=== PATIENT | male | born 1950 | race Caucasian/White ===

== ENCOUNTER → 2023-12-01 12:08 | Outpatient (REF) | payer MEDICARE, OTHER, SELFPAY | LOC: HWRAD 12:08 | PROVIDERS: ATTENDING PHYSICIAN Family Medicine | DX: M25.551 Pain in right hip (principal); Z96.641 Presence of right artificial hip joint | CPT/HCPCS: 73502 ==

== ENCOUNTER → 2024-02-15 06:30 | Day surgery (SDC) | payer MEDICARE, OTHER, SELFPAY | LOC: GI 06:30 | PROVIDERS: ATTENDING PHYSICIAN Internal Medicine Gastroenterology | DX: Z12.11 Encounter for screening for malignant neoplasm of colon (principal); D12.2 Benign neoplasm of ascending colon; K57.30 Diverticulosis of large intestine without perforation or abscess without bleeding; K64.8 Other hemorrhoids; Q43.8 Other specified congenital malformations of intestine; Z86.010 Personal history of colon polyps | CPT/HCPCS: 45380; 88305 ==

== ENCOUNTER → 2024-06-21 11:22 | Outpatient (REF) | payer MEDICARE, OTHER, SELFPAY | LOC: HWRAD 11:22 | PROVIDERS: ATTENDING PHYSICIAN Internal Medicine Gastroenterology; FAMILY PHYSICIAN Family Medicine | DX: K59.01 Slow transit constipation (principal) | CPT/HCPCS: 74018 ==

== ENCOUNTER 2024-07-15 10:10 | Inpatient (IN) | payer MEDICARE, OTHER, SELFPAY ==
[2024-07-13 17:47] VITALS: BP 146/105
[2024-07-13 18:37] VITALS: BP 129/73
[2024-07-13 18:48] VITALS: BMI 28.7
[2024-07-13 19:12] LABS: % Basophils 0.5 % (0-2); % Eosinophils 1.3 % (0-6); % Immature Granulocytes 0.2 % (0-0.5); % Lymphocytes 15.3 % (20.5-51.1); % Monocytes 11.7 % (1.7-9.3); Absolute Basophils 0.1 10^3/uL (0-0.2); Absolute Eosinophils 0.1 10^3/uL (0-0.7); Absolute Lymphocytes 1.7 10^3/uL (1.2-3.4); Absolute Monocytes 1.3 10^3/uL (0.1-0.6); Absolute Neutrophils 7.7 10^3/uL (1.4-6.5); Hematocrit 39.1 % (39.0-52.0); Hemoglobin 13.3 g/dL (13.0-18.0); Mean Corpuscular Hgb 30.2 pg (27.0-31.0); Mean Corpuscular Volume 88.9 fL (80.0-94.0); Mean Platelet Volume 9.7 fL (7.4-10.4); Nucleated Red Blood Cells % 0 % (-); Platelet Count 322 10^3/uL (130-400); Red Cell Dist. Width 13.3 % (11.5-14.5); White Blood Cell Count 10.8 10^3/uL (4.8-10.8)
--- NOTE | 2024-07-13 19:24 | ED.GENMED ---
History of Present Illness
General
Chief Complaint: Fainting/Passed Out
Time Seen by Provider: 07/13/24 18:48
History of Present Illness
History of Present Illness:
Patient is a 73 male with history of A-fib on Eliquis, CAD with stent, hypertension, hyperlipidemia presented to the emergency room after a fall and syncopal event. Patient states that he woke up this morning feeling slightly unwell. He felt
nauseous but had no episodes of vomiting or diarrhea. He attributed to something that he ate. Later in the day he went to the bathroom. He did feel slightly nauseous and thought he was going to throw up but he did not. He then sat down on the
toilet and had a syncopal event and fell off the toilet. He did hit his head. He says he came to when he hit the ground. He does have a slight headache in the back of his head. No numbness tingling. No weakness. He denies any lightheadedness
dizziness. No tunnel vision. He only states that he was nauseous. He currently at this time feels back to baseline.
Past History
Past History
ED Past Medical History: Arrthythmia (Paroxysmal atrial fibrillation February 2018), CAD, GERD, HTN, Hypercholesterolemia and Other (Myasthenia gravis, Aragon's esophagus, coronary artery disease with stent, GERD, peripheral neuropathy with chronic foot
drop bilaterally); Negative [place]
ED Past Surgical History: Cardiac (PTCA with 1 stent 2000, pericardial effusion) and Orthopedic (Lumbar laminectomy, right hip replacement)
Social History
Tobacco: Non-smoker
Personal:
Living: with family
Employment: Employed
Family History
Family History: Other (Noncontributory)
Phy Exam
Physical Exam
Physical Exam:
GENERAL: no acute distress
HEENT: atraumatic, extraocular muscles intact, no signs of entrapment, dentition intact, no other obvious trauma
NECK: no midline tenderness, normal range of motion, no other obvious trauma
BACK: no midline tenderness, no other obvious trauma
CHEST: no tenderness, no flail segment, no subcutaneous emphysema, no other obvious trauma
LUNGS: clear to auscultation bilaterally
CARDIOVASCULAR: regular rate and rhythm
ABDOMEN: soft, non-tender, no masses, no other obvious trauma
PELVIS: stable, no obvious injury
EXTREMITIES: moving all extremities, distal pulses intact, no other obvious trauma
NEUROLOGIC: awake, alert x 3, no focal deficits
Course
Orders/Labs/Results
Orders:
Orders
07/13/24 17:52
CT Head W/o Iv Contrast Urgent
Comment:
Reason For Exam: fall
07/13/24 18:24
ECG [Electrocardiogram (*1)] Urgent
Reason for Study: Vertigo / Dizzy
EKG- Treatment ONCE
07/13/24 18:58
CMP [Comprehensive Metabolic Panel] Urgent
Complete Blood Count/With Diff Urgent
Magnesium Urgent
Comment: ADD ON
07/13/24 19:22
Add On- LAB Stat
Tests Added?: magnesium
Abnormal Lab Results
07/13/24
18:58
RBC 4.40 L 10^6/uL
(4.70-6.10)
Absolute Neuts (auto) 7.7 H 10^3/uL
(1.4-6.5)
Absolute Monos (auto) 1.3 H 10^3/uL
(0.1-0.6)
Lymphocytes % 15.3 L %
(20.5-51.1)
Monocytes % 11.7 H %
(1.7-9.3)
Chloride 97 L mmol/L
(98-107)
Glucose 104 H mg/dl
(70-99)
07/13/24 18:58
07/13/24 18:58
Vital Signs
Initial and Last Documented VS:
Initial Vital Signs
Temp Pulse Resp BP Pulse Ox
98.4 F 76 16 146/105 98
07/13/24 17:47 07/13/24 17:47 07/13/24 17:47 07/13/24 17:47 07/13/24 17:47
Last Documented Vital Signs
Temp Pulse Resp BP Pulse Ox
98.4 F 60 13 129/73 97
07/13/24 17:47 07/13/24 18:45 07/13/24 18:45 07/13/24 18:37 07/13/24 18:45
MDM/Problems Addressed
Differential Diagnosis Includes:
Patient is a 73-year-old male with history of A-fib on Eliquis, CAD with, hypertension, hyperlipidemia presenting to the emergency department after syncopal event with a fall. Vitals are notable for normal blood pressure and heart rate. Exam does
not show any obvious traumatic injury. He is complaining of a headache. Concern for traumatic intracranial bleed. Given that he was nauseous could be vasovagal however patient denies any other prodrome and does have history of cardiac disease I
am concerned about cardiac cause of syncope. Will check blood work including magnesium. EKG per my interpretation with normal sinus rhythm and normal intervals. Will obtain CT scan of the head. Likely will benefit from admission.
*Critical Care Note
Total Time (30-74mins, 75-104mins- exclusive of procedures): Not Applicable
Update Note
Update Note:
CT scan of the head per my interpretation with no obvious hemorrhage. Magnesium is normal. Given that patient really did not have many prodromal symptoms (besides ongoing nausea) patient will benefit from admission for cardiac monitoring.
Discussed with hospitalist who accepted patient to their service
ED Attending Note
-
Portions of this chart may have been created with voice recognition software.� Occasional wrong word or��sound alike� substitutions may have occurred due to the inherent limitations of voice recognition software.
Discharge Plan
Departure
Patient Disposition: Admit
Date of Disposition: 07/13/24
Time of Disposition: 20:09
Presentation/result/management discussed w/ accepting MD/DO: Hospitalist
Discharge Problem:
Syncope
Prescriptions:
No Action
aspirin 81 MG tablet,delayed release (DR/EC)
81 mg PO DAILY
mycophenolate mofetil 500 MG tablet
1,000 mg PO DAILY
omeprazole 20 MG capsule,delayed release(DR/EC)
20 mg PO DAILY
hydrochlorothiazide 25 MG tablet
25 mg PO DAILY
hydralazine 10 MG tablet
10 mg PO TID Qty: 30 1RF
Eliquis 5 MG tablet
5 mg PO BID
mycophenolate mofetil 500 mg Tablet
500 mg PO NOON
albuterol sulfate 90 mcg/actuation Hfa Aerosol Inhaler
2 puff INHALATION R Q4HPRN PRN (Reason: sob)
lisinopril 40 mg Tablet
40 mg PO DAILY
fluticasone propionate [Flonase] 50 mcg/actuation [place],Suspension
1 spray INTRANASAL DAILYPRN PRN (Reason: conjestion)
rosuvastatin 10 mg Tablet
10 mg PO DAILY
amiodarone 100 mg Tablet
100 mg PO DAILY
metoprolol tartrate 25 mg Tablet
12.5 mg PO BID
Interventions
Interventions:
*General Assessment Last Done: 07/13/24 17:47
*Neglect/Abuse Screening Last Done: 07/13/24 17:47
*ED COVID-19 Vaccine History Last Done: 07/13/24 17:47
Discharge Date and Time
Print Language: ROMANIAN
[2024-07-13 19:36] LABS: ALT (SGPT) 18 U/L (0-50); AST (SGOT) 26 U/L (17-59); Albumin 4.4 g/dl (3.5-5.0); Alkaline Phosphatase 70 U/L (38-126); Blood Urea Nitrogen 18 mg/dl (9-20); Calcium 9.6 mg/dl (8.4-10.2); Carbon Dioxide 29 mmol/L (22-30); Chloride 97 mmol/L (98-107); Estimated Creatinine Clearance 79 ml/min; Glucose 104 mg/dl (70-99); Magnesium 1.9 mg/dl (1.6-2.3); Potassium 4.3 mmol/L (3.5-5.1); Sodium 139 mmol/L (135-145); Total Bilirubin 1.2 mg/dl (0.2-1.3); Total Protein 6.6 g/dl (6.3-8.2); eGFR > 60.00
--- NOTE | 2024-07-13 20:11 | HPS.HSE ---
Addendum entered and electronically signed by Reggie Servin DO 07/13/24 20:46:
Patient seen and examined independently. Agree with findings and plan as set forth by SEFERINO Paredes.
Patient is a 73y M with PMH significant for ASCVD, hypertension and A-Fib who presents to ED for evaluation after syncopal event this AM. Patient states that he woke this AM to use the bathroom. He urinated and felt lightheaded, nauseated and
diaphoretic. He sat on the toilet and then woke on the floor - having lost consciousness for a few seconds. He has mild posterior headache. He has felt well since that time with no recurrent nausea, lightheadedness, etc. His convinced him
to present to the ED for evaluation given that he is on Eliquis.
Patient admits to similar symptoms of lightheadedness and nausea associated with AM urination over the past few months. Symptoms are inconsistent. No prior syncope. No issues with urination later in the day.
Ass:
Micturition Syncope
Head Injury on Eliquis
Paroxysmal Atrial Fibrillation
ASCVD
Myasthenia Gravis
Plan:
Observe overnight for further evaluation.
Monitor on telemetry for any arrhythmia.
Continue usual outpatient medications.
Follow for any new / recurrent symptoms.
PT / OT evaluation in the AM.
Original Note:
Family Physician
-
Family Physician:
Chief Complaint
-
syncope
History of Present Illness
73 year old with PMH for Aragon esophagus, GERD, A-fib, coronary artery disease, pericardial effusion, hypertension, pericarditis presented to us after a fall and syncopal event. He woke up not feeling well this morning. He went to the bathroom,
voided and he sat on the toilet and had a syncopal event. He hit his cheek right hip on the tub. Since then he was resting at home. Patient denied any headache, dizziness since then. Patient denied any fevers, chills, runny nose, congestion,
cough. Patient denied any chest pain, short of breath or palpitation. Patient denied any abdominal pain, nausea,, vomiting, diarrhea. Patient denied dysuria, hematuria.
CT head and labs stable. Admitting for further management
Medical History
Past Medical History
Past Medical History: Reports Other
Additional Past Medical History:
Aragon esophagus
GERD
A-fib
Coronary artery disease
Pericardial effusion
Colon polyps
Aragon's esophagus
Hypertension
Hyperlipidemia
Past Surgical History: Reports Other
Additional Past Surgical History:
Coronary artery disease stent
Laminectomy
right hip replacement
Spinal fusion x 2
Right cataract surgery y
Social History
Tobacco: Former Smoker
Alcohol: None
Drug: None
Personal:
Living: With Family
Family History
Family History: Not pertinent
Allergies / Home Medications
Allergies reflects when Allergies were last updated in [facility].
Home Medications with original date entered in [facility]
Allergy/Medication List:
Allergies
Allergy/AdvReac Type Severity Reaction Status Date / Time
azathioprine Allergy Unknown CHILLS Verified 08/23/19 09:11
Home Medications
aspirin 81 mg tablet,delayed release 81 mg PO DAILY 03/22/18
mycophenolate mofetil 500 mg tablet 1,000 mg PO DAILY 04/06/18
hydralazine 10 mg tablet 10 mg PO TID #30 tabs 09/27/18
hydrochlorothiazide 25 mg tablet 25 mg PO DAILY 09/27/18
omeprazole 20 mg capsule,delayed release 20 mg PO DAILY 10/01/18
apixaban 5 mg tablet (Eliquis) 5 mg PO BID 12/20/18
albuterol sulfate 90 mcg/actuation aerosol inhaler 2 puff inhalation R Q4HPRN PRN sob 07/13/24
amiodarone 100 mg tablet 100 mg PO DAILY 07/13/24
fluticasone propionate 50 mcg/actuation nasal spray,suspension 1 spray intranasal DAILYPRN PRN conjestion 07/13/24
lisinopril 40 mg tablet 40 mg PO DAILY 07/13/24
metoprolol tartrate 25 mg tablet 12.5 mg PO BID 07/13/24
mycophenolate mofetil 500 mg tablet 500 mg PO NOON 07/13/24
rosuvastatin 10 mg tablet 10 mg PO DAILY 07/13/24
Review of Systems
-
Constitutional: Reports No Symptoms
EENT: Reports No Symptoms
Respiratory: Reports No Symptoms
Cardiac: Reports No Symptoms
Abdomen/GI: Reports No Symptoms
: Reports No Symptoms
Musculoskeletal: Reports No Symptoms
Skin: Reports No Symptoms
Neurological: Reports Other (Syncopal episodes)
Endocrine: Reports No Symptoms
Hematologic/Lymphatic: Reports No Symptoms
Psych: Reports No Symptoms
Physical Exam
Vital Signs
Vital Signs
Temp Pulse Resp BP Pulse Ox
98.4 F 60 13 129/73 97
07/13/24 17:47 07/13/24 18:45 07/13/24 18:45 07/13/24 18:37 07/13/24 18:45
Physical Exam
General: Well Developed, Well Nourished and No Apparent Distress
HEENT: NormoCephalic, Moist mucous membranes and Atraumatic
Respiratory: Clear
Cardiac: S1/S2 and Regular Rhythm; No Murmur or Rub
GI: Soft, Non Tender, Non Distended and Normal Bowel Sounds; No Organomegaly
Rectal: Deferred by Provider
Musculoskeletal: No Clubbing, No Cyanosis and No Edema
Skin: No Rash
Neuro: AO x 3 and Nonfocal/grossly intact
Psych: Calm
Laboratory Results
-
07/13/24 18:58
07/13/24 18:58
Laboratory Results
Total Bilirubin 1.2 mg/dl (0.2-1.3) 07/13/24 18:58
AST 26 U/L (17-59) 07/13/24 18:58
ALT 18 U/L (0-50) 07/13/24 18:58
Alkaline Phosphatase 70 U/L (38-126) 07/13/24 18:58
Data Reviewed
-
CT Scan: Report Reviewed by me
Lab Data: Labs Reviewed by me
Impression/Plan
-
#syncope unclear cause
-head CT negative
-EKG with NSR
-Obtain orthostatics
-Hold hydralazine lisinopril, HCTZ
-PT/OT consult
# Paroxysmal A-fib
-EKG with normal sinus rhythm
-Amiodarone, Eliquis and metoprolol continued
# Coronary artery disease
-Status post cardiac stents
-Aspirin continued
# GERD
-PPI continued
#hyperlipidemia
-Statin continued
# DVT prophylaxis
-Eliquis
# CODE STATUS
-Full code
[2024-07-13 20:24] VITALS: BP 144/76
[2024-07-13 21:40] VITALS: BP 148/72; BMI 27.7
[2024-07-13] MEDS: TYLENOL 650 MG PO (21:47)
--- NOTE | 2024-07-13 21:55 | PTCARENOTE ---
Patient arrived from the ED via stretcher. Patient ambulated into the room with a walker. AAOx3, VSS. Patient has own walker from home. Name tag placed on walker by RN. Complained of 3/10 posterior headache. Given PRN Tylenol see DEC. Patient
oriented into the room. Instructed to call staff for assistance. Call hedrick is within reach.
[2024-07-13 22:01] VITALS: BMI 27.7
[2024-07-13 23:24] VITALS: BP 120/65
[2024-07-14] VITALS (9 sets, daily range): BP systolic 108–143; BP diastolic 50–77; PULSE 63–77
[2024-07-14 08:02] LABS: Hematocrit 38.4 % (39.0-52.0); Mean Corp Hgb Conc. 33.9 g/dL (33.0-37.0); Mean Corpuscular Hgb 30.2 pg (27.0-31.0); Mean Corpuscular Volume 89.1 fL (80.0-94.0); Mean Platelet Volume 9.7 fL (7.4-10.4); Platelet Count 287 10^3/uL (130-400); Red Blood Cell Count 4.31 10^6/uL (4.70-6.10); Red Cell Dist. Width 13.3 % (11.5-14.5); White Blood Cell Count 7.8 10^3/uL (4.8-10.8)
[2024-07-14] MEDS: ASPIR LOW (ENTERIC COATED) 81 MG PO (08:35)
[2024-07-14] MEDS: PROTONIX 40 MG PO (08:35)
[2024-07-14] MEDS: LOPRESSOR 12.5 MG PO ×2 (08:35→21:43)
[2024-07-14] MEDS: ELIQUIS 5 MG PO ×2 (08:35→21:44)
[2024-07-14] MEDS: CRESTOR 10 MG PO (08:35)
[2024-07-14] MEDS: CELLCEPT 1000 MG PO (08:36)
[2024-07-14] MEDS: PACERONE 100 MG PO (08:36)
[2024-07-14 08:46] LABS: Blood Urea Nitrogen 16 mg/dl (9-20); Calcium 9.2 mg/dl (8.4-10.2); Carbon Dioxide 31 mmol/L (22-30); Chloride 100 mmol/L (98-107); Estimated Creatinine Clearance 89 ml/min; Glucose 97 mg/dl (70-99); Potassium 4.2 mmol/L (3.5-5.1); Sodium 140 mmol/L (135-145); eGFR > 60.00
--- NOTE | 2024-07-14 09:11 | W.PN.HOSP.TC ---
Today's Communication/Plan
-
see bold
Assessment / Plan
Assessment / Plan
Gen: NAD, AAOx3.
Eyes: EOMI, PERRLA, no scleral icterus.
Neck: supple.
CV: RRR, +S1/S2, no m/r/g.
Resp: CTAB, no rales, wheezes, or rhonchi.
Abd: +BS, soft, NT, ND
Skin: No rashes.
Neuro: CN 2-12 intact, non-focal.
Psych: Normal mood and affect.
CT brain: No evidence of acute intracranial abnormality.
Syncope:
-Occurred with micturition and history is consistent with vasovagal episode
-EKG on admission NSR
-Tele: Sinus mei
-orthostatic VS NEG
-holding home hydralazine/lisinopril/HCTZ
-PT/OT consult
-check echo
-c/s cards (known to Dr. Thompson)
Other problems:
Essential hypertension: Holding home hydralazine/lisinopril/HCTZ
PAF: cont Eliquis/BB/Amio
CAD with h/o stents: Cont ASA/statin/BB
GERD: cont PPI
HLD: cont statin
FULL/Eliquis
Anticipated Discharge: Within 24 hours
Subjective/Interval History
-
Date of Service: July 14, 2024
No new complaints.
Objective Data
-
Labs:
Laboratory Results
07/14/24
07:44
WBC 7.8
Hgb 13.0
Hct 38.4 L
Plt Count 287
Sodium 140
Potassium 4.2
Chloride 100
Carbon Dioxide 31 H
BUN 16
Creatinine 0.8
Glucose 97
Calcium 9.2
Vital Signs:
Vital Signs
Temp Pulse Resp BP Pulse Ox
98.3 F 63 16 115/70 96
07/14/24 08:29 07/14/24 08:29 07/14/24 08:29 07/14/24 08:29 07/14/24 08:29
I&O
07/13/24 07/14/24 07/15/24
06:59 06:59 06:59
Intake Total 480 / 480
Output Total 180 / 180
Balance 300 / 300
[2024-07-14 09:17] LABS: TSH 1.84 uIU/ml (0.47-4.68)
--- NOTE | 2024-07-14 12:24 | CON.CAR ---
Consultation
Consultation Request
Date/Time Consultation Requested: 07/14/2024
Date/Time Consultation Performed: 07/14/2024
Reason for Consultation: Syncope
Medical History
-
Chief Complaint: Syncope
History of Present Illness:
Jon Garcia is a 73-year-old male (local [employer]) with coronary artery disease status-post BMS (02/2002; borderline residual obstructive CAD), paroxysmal atrial fibrillation (on Amiodarone /Eliquis), previous hemorrhagic pericarditis (04/17/18;
status-post pericardiocentesis), occasional PVCs (2% burden), primarily asymptomatic bradycardia (75%), hypertension (mild labile component), mild to moderate tricuspid regurgitation, hyperlipidemia, mild obesity, myasthenia gravis (cane/walker
assistance), and mild intermittent asthma (followed by Pulmonary) history of pericardial effusions, presented with an episode of fall and syncope. Patient was not feeling well in the morning when he woke up. He went to the bathroom voided and sat
on the toilet where he had an episode episode of syncope. Patient did fall down and hit his cheek to the bathtub.
Patient denies any chest pain. No shortness of breath no palpitations. No abdominal pain nausea vomiting or diarrhea.
In the ER CT scan of the head was done which was showing no sign of any acute abnormality.
Past Medical History
Past Medical History: Arrhythmias (Paroxysmal atrial fibrillation), CAD (History of bare-metal stent in 2001 with borderline residual obstructive disease), CHF (History of hemorrhagic pericarditis in 2018 status post pericardiocentesis), HTN,
Hypercholesterolemia and Other (Myasthenia gravis, mild asthma, Colon polyp, Aragon's esophagus)
Past Surgical History: Orthopedic (Right hip replacement, spinal fusion x 2) and Other (Right cataract surgery)
Social History
Tobacco: Former Smoker
Alcohol: None
Personal:
Living: With Family
Family History
Family History: Reviewed & Not Pertinent
Allergies / Home Medications
Allergy/AdvReac Type Severity Reaction Status Date / Time
azathioprine Allergy Unknown CHILLS Verified 08/23/19 09:11
�Medication �Instructions �Recorded �Confirmed �Type
aspirin 81 mg tablet,delayed 81 mg PO DAILY CAD 03/22/18 07/13/24 History
release
mycophenolate mofetil 500 mg tablet 1,000 mg PO DAILY Myasthenia gravis 04/06/18 07/13/24 History
hydralazine 10 mg tablet 10 mg PO TID #30 tabs 09/27/18 07/13/24 Rx
hydrochlorothiazide 25 mg tablet 25 mg PO DAILY Blood Pressure 09/27/18 07/13/24 History
omeprazole 20 mg capsule,delayed 20 mg PO DAILY Gastrointestinal 10/01/18 07/13/24 History
release Issue
apixaban 5 mg tablet (Eliquis) 5 mg PO BID A-FIB 12/20/18 07/13/24 History
albuterol sulfate 90 mcg/actuation 2 puff inhalation R Q4HPRN PRN sob 07/13/24 07/13/24 History
aerosol inhaler
amiodarone 100 mg tablet 100 mg PO DAILY A-FIB 07/13/24 07/13/24 History
fluticasone propionate 50 1 spray intranasal DAILYPRN PRN 07/13/24 07/13/24 History
mcg/actuation nasal conjestion
spray,suspension
lisinopril 40 mg tablet 40 mg PO DAILY Blood Pressure 07/13/24 07/13/24 History
metoprolol tartrate 25 mg tablet 12.5 mg PO BID Blood Pressure 07/13/24 07/13/24 History
rosuvastatin 10 mg tablet 10 mg PO DAILY High Cholesterol 07/13/24 07/13/24 History
mycophenolate mofetil 500 mg tablet 500 mg PO DAILY 07/14/24 07/14/24 History
Review of Systems
-
All other systems: Negative unless noted
Physical Exam
Vital Signs
Temp Pulse Resp BP Pulse Ox
98.3 F 71 16 108/63 96
07/14/24 11:40 07/14/24 11:40 07/14/24 11:40 07/14/24 11:40 07/14/24 11:40
Lab Results
07/14/24 07:44
07/14/24 07:44
Physical Exam
General: Well Developed, Well Nourished and No Apparent Distress
HEENT: Normocephalic, Anicteric and Moist Mucous Membranes
Respiratory: Clear and Non Labored Respirations
Cardiac: S1/S2 and Regular Rhythm; Negative Murmur
GI: Soft, Non Tender, Non Distended and Normal Bowel Sounds
Musculoskeletal: No Clubbing, No Cyanosis and No Edema
Skin: Warm and Dry
Neuro: Awake, Alert, Oriented and AO x 3
Impression / Plan
-
Jon Garcia is a 73-year-old male (local [employer]) with coronary artery disease status-post BMS (02/2002; borderline residual obstructive CAD), paroxysmal atrial fibrillation (on Eliquis), previous hemorrhagic pericarditis (04/17/18; status-post
pericardiocentesis), occasional PVCs (2% burden), primarily asymptomatic bradycardia (75%), hypertension (mild labile component), mild to moderate tricuspid regurgitation, hyperlipidemia, mild obesity, myasthenia gravis (cane/walker assistance), and
mild intermittent asthma (followed by Pulmonary) history of pericardial effusions, presented with an episode of fall and syncope.
Syncope
-Possible vasovagal
-Dehydration, hypotension associated with bradycardia and early a.m. high vagal tone along with micturition may have precipitated an episode of bradycardia and hypotension leading to loss of consciousness.
-Brief episode without any significant injury
-Patient does have a history of pericardial effusion and atrial fibrillation along with long-term use of amiodarone
-A quick bedside echo was done that did not show any significant pericardial effusion.
-Continue telemetry
-Echo in the morning
-Continue Eliquis/aspirin
Coronary artery disease
-On aspirin, metoprolol, and Crestor
-Last PCI was in 2001 with borderline residual disease.
-Last echo July 2023: LVEF 60%, aortic sclerosis without stenosis.
Paroxysmal atrial fibrillation
-In normal sinus rhythm
-Maintained on amiodarone
-History of pericardial effusion with the start of anticoagulation therapy back in 2017.
-Tolerating Eliquis.
-Bedside echo was done that did not show any significant pericardial effusion at this time.
Myasthenia gravis
-On MMF
-Chronically on it with no sign of diarrhea.
-WBC count is 7.8.
Hypertension
-On lisinopril, hydrochlorothiazide, hydralazine, and metoprolol
-At this time I will discontinue his hydralazine, HCTZ
-Hold lisinopril and continue metoprolol.
-Rehydrate.
Data Reviewed
-
EKG: Tracing Personally Visualized and interpreted
Radiology: Report Reviewed by me
Medical Tests (Nuc Med, Echo etc): Image Personally Visualized and interpreted
Labs: Labs Reviewed by me
Old Records: Reviewed
[2024-07-14] MEDS: TYLENOL 650 MG PO (15:01)
[2024-07-14] MEDS: CELLCEPT 500 MG PO (21:44)
[2024-07-15 03:35] VITALS: BP 111/52
[2024-07-15 08:16] VITALS: BP 133/73
[2024-07-15] MEDS: LOPRESSOR 12.5 MG PO (09:01)
[2024-07-15] MEDS: CELLCEPT 1000 MG PO (09:01)
[2024-07-15] MEDS: PROTONIX 40 MG PO (09:01)
[2024-07-15] MEDS: FLUSH (NSS) 1 FLUSH IV (09:02)
[2024-07-15] MEDS: PACERONE 100 MG PO (09:02)
[2024-07-15] MEDS: ELIQUIS 5 MG PO (09:02)
[2024-07-15] MEDS: ASPIR LOW (ENTERIC COATED) 81 MG PO (09:02)
[2024-07-15] MEDS: CRESTOR 10 MG PO (09:02)
--- NOTE | 2024-07-15 09:48 | W.PN.HOSP.TC ---
Addendum entered and electronically signed by Sylvester Duff MD 07/15/24 14:35:
Total time spent on d/c = 32 min. This included today's physical exam, progress note, review of laboratory and diagnostic data, preparation of discharge documents and prescriptions, and discussions about the pt's hospital course and discharge plan
with the patient and other medical office clerk involved in the patient's care.
Original Note:
Today's Communication/Plan
-
Echo read pending
Assessment / Plan
Assessment / Plan
Gen: NAD, AAOx3.
Eyes: EOMI, PERRLA, no scleral icterus.
Neck: supple.
CV: remains RRR, +S1/S2, no m/r/g.
Resp: remains CTAB, no rales, wheezes, or rhonchi.
Abd: +BS, soft, NT, ND
Skin: No rashes.
Neuro: CN 2-12 intact, non-focal.
Psych: Normal mood and affect.
CT brain: No evidence of acute intracranial abnormality.
Syncope:
-Occurred with micturition and history is consistent with vasovagal episode
-EKG on admission NSR
-Tele: Sinus mei/SR
-orthostatic VS NEG
-holding home hydralazine/lisinopril/HCTZ
-PT/OT consult
-check echo
-cardiology following
Other problems:
Essential hypertension: Holding home hydralazine/lisinopril/HCTZ
PAF: cont Eliquis/BB/Amio
CAD with h/o stents: Cont ASA/statin/BB
GERD: cont PPI
HLD: cont statin
FULL/Eliquis
Anticipated Discharge: Within 24 hours
Subjective/Interval History
-
Date of Service: July 15, 2024
Objective Data
-
Vital Signs:
Vital Signs
Temp Pulse Resp BP Pulse Ox
97.5 F 71 18 133/73 94
07/15/24 08:16 07/15/24 09:01 07/15/24 08:16 07/15/24 09:01 07/15/24 08:16
I&O
07/14/24 07/15/24 07/16/24
06:59 06:59 06:59
Intake Total 480 / 480 560 / 560
Output Total 180 / 180
Balance 300 / 300 560 / 560
--- NOTE | 2024-07-15 10:25 | W.PN.CD ---
Today's Communication / Plan
-
- Stable for discharge from cardiac stand point
- Follow up scheduled in [address] Thompson.
- Pt will get at home rhythm monitoring device - smart watch, vs [facility] or similar.
Impression / Plan
-
Jon Garcia is a 73-year-old male (local [employer]) with coronary artery disease status-post BMS (02/2002; borderline residual obstructive CAD), paroxysmal atrial fibrillation (on Eliquis), previous hemorrhagic pericarditis (04/17/18; status-post
pericardiocentesis), occasional PVCs (2% burden), primarily asymptomatic bradycardia (75%), hypertension (mild labile component), mild to moderate tricuspid regurgitation, hyperlipidemia, mild obesity, myasthenia gravis (cane/walker assistance), and
mild intermittent asthma (followed by Pulmonary) history of pericardial effusions, presented with an episode of fall and syncope.
Syncope
-Possible vasovagal
-Dehydration, hypotension associated with bradycardia and early a.m. high vagal tone along with micturition may have precipitated an episode of bradycardia and hypotension leading to loss of consciousness.
-Brief episode without any significant injury
-Patient does have a history of pericardial effusion and atrial fibrillation along with long-term use of amiodarone
-A quick bedside echo was done that did not show any significant pericardial effusion.
-telemetry showed no arrhtyhmia
-Echo 07/15/24: Normal LV size and function with no regional wall motion abnormalities. LVEF is 60-65% by visual estimation.
Compared to prior from August 15, 2023, tricuspid regurgitation is trace, previously mild to moderate, and estimated PASP is normal at 36 mmHg, previously 40 to 45 mmHg.
-Continue Eliquis/aspirin
Coronary artery disease
-On aspirin, metoprolol, and Crestor
-Last PCI was in 2001 with borderline residual disease.
-Last echo July 2023: LVEF 60%, aortic sclerosis without stenosis.
Paroxysmal atrial fibrillation
-In normal sinus rhythm
-Maintained on amiodarone
-History of pericardial effusion with the start of anticoagulation therapy back in 2018.
-Tolerating Eliquis.
-Bedside echo was done that did not show any significant pericardial effusion at this time.
Myasthenia gravis
-On MMF
-Chronically on it with no sign of diarrhea.
-WBC count is 7.8.
Hypertension
-On lisinopril, hydrochlorothiazide, hydralazine, and metoprolol
-At this time I will discontinue his hydralazine, HCTZ
-Hold lisinopril and continue metoprolol.
-Rehydrate.
Physical Exam
Vital Signs/Labs
Vital Signs
Temp Pulse Resp BP Pulse Ox
97.5 F 71 18 133/73 94
07/15/24 08:16 07/15/24 09:01 07/15/24 08:16 07/15/24 09:01 07/15/24 08:16
07/14/24 07/15/24 07/16/24
06:59 06:59 06:59
Actual Weight 92.675 kg
07/14/24 07:44
07/14/24 07:44
Magnesium 1.9 mg/dl (1.6-2.3) 07/13/24 18:58
TSH 1.84 uIU/ml (0.47-4.68) 07/14/24 07:44
Physical Exam
Constitutional: No acute distress and Comfortable
EENT: Anicteric and Moist mucous membranes
Cardiovascular: Rhythm & rate is regular, Pedal edema is absent and JVD pressure is normal
Respiratory: Respiratory effort normal, Lungs clear to auscul. and Wheeze Absent
GI: Soft, Distention absent, Non tender and Normal bowel sounds
Neuro/Psych: Alert, Oriented and AO x 3
Data Reviewed
-
Date of Service: July 15, 2024
Medical Decision Making: Reviewed Test Results, Independent Historian Assessment and Test Interpretation
EKG: Tracing Personally Visualized and interpreted
Echo: Tracing Personally Visualized and interpreted
Labs: Labs Reviewed by me
Old Records: Reviewed
[2024-07-15 11:42] VITALS: BP 107/64; BP 110/64; BP 134/75; PULSE 54; PULSE 57; PULSE 62
--- NOTE | 2024-07-15 13:02 | CM ---
Addendum entered by Sybil Rayo 07/15/24 14:43:
CM discussed plan for discharge, IMM reviewed, signed, placed in chart. Patient inquiring about echo results, update to nurse.
Original Note:
Patient seen with , initial assessment completed. Patient resides in a multiple story home, two steps to enter. Patient denies VN or SNF history, reports having a rolling walker and cane at home. Patient confirms PCP Manasa Britt, pharmacy used
[facility], confirms prescription coverage. Patient denies any food, housing/utility, transportation insecurities at home. CM will continue to follow for all discharge planning needs.
Plan; home no needs anticipated.
--- NOTE | 2024-07-15 14:10 | W.DCSUMMARY ---
Discharge Summary
Discharge Data
Date of Admission: 07/15/24
Date of Discharge: 07/15/24
-
Pending Results: No
Hospital Course
Primary diagnoses:
Syncope, likely vasovagal
Secondary diagnoses:
Essential hypertension: Holding home hydralazine/lisinopril/HCTZ
PAF: cont Eliquis/BB/Amio
CAD with h/o stents: Cont ASA/statin/BB
GERD: cont PPI
HLD
Consultants:
Cardiology
Imaging:
CT brain: No evidence of acute intracranial abnormality.
Echo: Normal LV size and function with no regional wall motion abnormalities.
LVEF is 60-65% by visual estimation.
Normal diastolic function.
Normal right ventricular size and function.
No significant valvular disease.
Estimated pulmonary artery pressure of 36 mmHg assuming a right atrial pressure
of 3 mmHg.
Compared to prior from August 15, 2023, tricuspid regurgitation is trace,
previously mild to moderate, and estimated PASP is normal at 36 mmHg,
previously 40 to 45 mmHg.
Hospital course: 73-year-old male who presented with chief complaint of syncope as outlined in the H&P done on admission. This occurred with micturition and the history was consistent with a vasovagal episode. ECG on admission showed normal sinus
rhythm. He was monitored on telemetry and had sinus bradycardia and sinus rhythm. His orthostatic vital signs were negative. His home hydralazine/lisinopril/HCTZ were stopped. Echocardiogram was unremarkable regarding an etiology for his
syncopal episode as above. Cardiology saw the patient consultation. He was discharged in medically stable condition
Discharge Plan
-
Patient Disposition: Home (Routine Discharge)
Discharge Diagnosis/Procedures: Syncope, likely vasovagal
Condition: Good
Diet: Other diet
Additional Diets: Heart healthy
Activity: As tolerated
Driving Restrictions: As prior to admission
Referrals:
Manasa Britt, DO [Family Provider] - in less than 1 week
Prescriptions:
Continued
aspirin 81 MG tablet,delayed release (DR/EC)
81 mg PO DAILY
mycophenolate mofetil 500 MG tablet
1,000 mg PO DAILY
omeprazole 20 MG capsule,delayed release(DR/EC)
20 mg PO DAILY
Eliquis 5 MG tablet
5 mg PO BID
albuterol sulfate 90 mcg/actuation Hfa Aerosol Inhaler
2 puff INHALATION R Q4HPRN PRN (Reason: sob)
fluticasone propionate 50 mcg/actuation [place],Suspension
1 spray INTRANASAL DAILYPRN PRN (Reason: conjestion)
rosuvastatin 10 mg Tablet
10 mg PO DAILY
amiodarone 100 mg Tablet
100 mg PO DAILY
metoprolol tartrate 25 mg Tablet
12.5 mg PO BID
mycophenolate mofetil 500 mg Tablet
500 mg PO DAILY
Rx Instructions:
@2000 daily
Discontinued
hydrochlorothiazide 25 MG tablet
25 mg PO DAILY
hydralazine 10 MG tablet
10 mg PO TID Qty: 30 1RF
lisinopril 40 mg Tablet
40 mg PO DAILY
Discharge Orders:
Discharge Patient (As Directed); Ordered 07/15/24
Ordered By: Sylvester Duff
Discharge Date and Time
Print Language: UKRAINIAN
[2024-07-15 15:18] VITALS: BP 109/61
--- NOTE | 2024-07-15 16:06 | PTCARENOTE ---
pt was received from previous nurse, sitting in a stationary chair with spouse at bedside. pt did not have any behavioral/verbal indicators of discomfort or pain. assessments remain the same. pt's hospitalist notified that pt would like to have echo
results prior to discharge. pt's bedside table, call hedrick, television remote and telephone remain within reach
== END 2024-07-15 16:40 | disposition home or self-care (01) | DRG 312 ==
LOC: 4 EAST ACU 10:10
PROVIDERS: Registered Nurse; ADMITTING PHYSICIAN Hospitalist; ATTENDING PHYSICIAN Internal Medicine; CONSULT PHYSICIAN Internal Medicine Cardiovascular Disease; EMERGENCY PHYSICIAN Student in an Organized Health Care Education/Training Program; FAMILY PHYSICIAN Family Medicine
DX: R55 Syncope and collapse (principal); I25.10 Atherosclerotic heart disease of native coronary artery without angina pectoris; G62.9 Polyneuropathy, unspecified; G70.00 Myasthenia gravis without (acute) exacerbation; I07.1 Rheumatic tricuspid insufficiency; I48.0 Paroxysmal atrial fibrillation; K21.9 Gastro-esophageal reflux disease without esophagitis; K22.70 Barrett's esophagus without dysplasia; J45.20 Mild intermittent asthma, uncomplicated; S09.90XA Unspecified injury of head, initial encounter; I10 Essential (primary) hypertension; E78.00 Pure hypercholesterolemia, unspecified; W18.11XA Fall from or off toilet without subsequent striking against object, initial encounter; R00.1 Bradycardia, unspecified; E66.9 Obesity, unspecified; Z68.27 Body mass index [BMI] 27.0-27.9, adult; Z98.1 Arthrodesis status; Z79.82 Long term (current) use of aspirin; Z96.641 Presence of right artificial hip joint; Z95.5 Presence of coronary angioplasty implant and graft; Z87.891 Personal history of nicotine dependence; Z79.899 Other long term (current) drug therapy; Z79.01 Long term (current) use of anticoagulants
CPT/HCPCS: 70450; 80048; 80053; 83735; 84443; 85025; 85027; 93005; 93306; 97162; 97166; 99285

== ENCOUNTER 2024-08-01 10:20 | Day surgery (SDC) | payer MEDICARE, OTHER, SELFPAY ==
[2024-08-01] VITALS (13 sets, daily range): BP systolic 102–140; BP diastolic 62–86
--- NOTE | 2024-08-01 16:30 | ITS.CL.PACE ---
[facility] - Pacemaker Implant
Pacemaker Implant
Procedure Report:
Dual Chamber Pacemaker Placement:
Mr. Garcia is a very pleasant 73 yrs old gentleman with h/p PAF on Amiodarone and Metoprolol anticoagulated with Eliquis with severe symptomatic bradycardia with sick sinus syndrome with syncope and is recommended for PPM placement.�
Indications: Sick sinus syndrome
Date of the Procedure: 08/01/24
Pre-Operative Diagnosis: Sick sinus syndrome
Post-Operative Diagnosis: Sick sinus syndrome
Procedure Performed: DUAL CHAMBER PACEMAKER IMPLANTATION
Performing physician:
Eryn Cheung MD
Assistants:
None
Anesthesia:
See anesthesia records
Pre-operative antibiotics:
Ancef
Detailed Description of the Procedure:
The patient was identified using hospital identification and informed consent obtained for the procedure. The risks were explained including, but not limited to: Bleeding, infection, arrhythmia, stroke, vascular/cardiac/lung puncture, surgery,
pacemaker dependency/device malfunction. All questions were answered.
The patient was brought to the electrophysiology laboratory in stable condition in fasting state. Continuous electrocardiographic and hemodynamic monitoring was initiated. The initial rhythm was normal sinus.
The procedure site was meticulously prepared with surgical scrub and allowed to dry with no pooling. Sterile draping was applied to cover the procedure site. The image intensifier was draped with sterile bag and positioned over the patient.
A surgical pause and time out was performed immediately prior to the procedure with review of her medical history, recent labs, allergies and medications with site of procedure identified and consent noted in the chart. Antibiotics pre operatively
given. All team members concurred.
The right infraclavicular region was prepped and draped in the usual sterile fashion. Local anesthesia was administered subcutaneously using 1% lidocaine / Bupivacaine. The right cephalic vein cutdown was performed with an incision at the
delto-pectoral groove, and vascular sheaths were introduced for lead access. These were advanced into the right ventricle and the right atrium. The right ventricular lead was secured in position with an active fixation technique at the septal
location. The RA lead was attached in the right atrial appendage with active fixation. There was excellent sensing, pacing, and impedance from the leads, with no diaphragmatic stimulation at 10 V output.�Bovie cautery, antibiotics, and fluoroscopy
were used.
The sheaths were withdrawn, and the thresholds remained acceptable. The leads were secured in position at the venous entry site with 2-0 Ethibond. A pocket was fashioned contiguous to the incision. The electrode terminals were connected to the pulse
generator, which was placed into the pocket.
The generator was secured to the underlying fascia with 2-0 Ethibond sutures.
The wound was irrigated thoroughly with antibiotic solution and closed in 3 layers using 2-0 V loc followed by 4-0 VLoc sutures. Steri-Strips and a bandage were applied externally.�
Procedure End:
The procedure was tolerated well.
Estimated Blood loss:
5 cc
Specimens Removed:
No cultures and no specimens were obtained. No intraoperative pathology was identified.
Fluoro time:
2.1 min /17.9mGy
Urine output:
None
Packs / Drains/ Tubes:
None
Instrument / Sponge Count Correct:
Yes
Complications of the Procedure:
None
Condition of Patient at Time of Transfer:
Hemodynamically stable with no neurological or vascular compromise.
Device information:�
Generator: [employer]; Model: W1DR01; Serial # [id number]
Atrial Lead: [employer]; Model: 5076-52; Serial # [id number]
Measured data in the right atrium was sensing of 3.1 mV, impedance of 475 ohms and threshold of 1.25 V at 0.4ms�
RV Lead: Medtronic; Model: 5076-58; Serial # [id number]
Measured data in the RV lead was sensing of 8 mV, impedance of 665 ohms and threshold of 1.0 V at 0.4ms�
Scar parameter settings were AAIR<=> DDDR 60-130 bpm. �
����������� Mode Switch: On
����������� Paced AV interval: 180ms
����������� Sensed AV interval: 150 ms.
����������� Rate Adaptive A-V Interval: Off
Output� parameters:
����������������������� Amplitude (V)������������� Pulse Width (ms)������� Sensitivity (mV)
����������� RA: ����� 3.5 ����������������� 0.4������������������ 0.3
����������� RV:������ 3.5������������������ 0.4������������������ 0.9
Summary:
Successful implantation of MRI compatible dual chamber pacemaker
Results/Recommendations:
-Please follow up CXR�
1. Please provide patient with adequate pain control�
Instructions to be given to patient:�
- Please follow up with [facility] at [address] [place] [address] ([phone]) to get your wound checked within 14 days of your discharge.
- Do not wet incision site until after it is evaluated at cardiology clinic. No showers until then. Sponge baths are OK.�
- Do not lift left elbow above shoulder, particularly with sudden jerking movements, for 1 month�
- Do not lift anything weighing more than 10 pounds with the left arm for 1 month�
- If you notice any fevers, shortness of breath, lightheadedness, chest pain, or worsening swelling in the wound site, please contact the arrhythmia clinic, contact your production line welder, or present to the hospital for evaluation.�
Eryn Cheung MD
Electrophysiology
--- NOTE | 2024-08-01 17:17 | W.PN.UPDATE ---
Update Note
Progress Note Update
73 yo WM s/p PPM (same day). He denies cp, sob, inc pain, site stable, tele Apaced. He will hold EliImageVision tonight and resume in am. CXR result pending. Activity restrictions reviewed. He will have 3 more doses of PO antibiotics. He has incision check
in 1 week. He is for d/c home after 6pm if site stable.
== END 2024-08-01 18:14 | disposition home or self-care (01) ==
LOC: CATH 10:20
PROVIDERS: ATTENDING PHYSICIAN Internal Medicine Cardiovascular Disease; FAMILY PHYSICIAN Family Medicine; OTHER PHYSICIAN Internal Medicine
DX: I49.5 Sick sinus syndrome (principal); Z79.01 Long term (current) use of anticoagulants; Z79.82 Long term (current) use of aspirin; Z79.899 Other long term (current) drug therapy
CPT/HCPCS: 33208; 71045; 93005; C1785; C1892; C1898

== ENCOUNTER 2024-11-19 07:55 | Day surgery (SDC) | payer MEDICARE, OTHER, SELFPAY ==
--- NOTE | 2024-11-05 09:35 | HPS.HSE ---
Family Physician
-
Family Physician: INTERVIEWE UNKNOWN - PT NOT
Chief Complaint
-
Paroxysmal atrial fibrillation.
History of Present Illness
The patient is a 74-year-old male presenting today for paroxysmal atrial fibrillation. The patient denies recent symptoms associated with this diagnosis. He is on current pharmacological therapy with Metoprolol Tartrate and Amiodarone. He
reports he has been compliant with Eliquis for oral anticoagulation due to a CHADS-VASc of 3. He does report concerns with fci Amiodarone use given the medication's known toxicities. He is interested in pursuing with Affera atrial fibrillation
ablation for further arrhythmia management in the hopes of discontinuing Amiodarone in the near future. He denies any current complaints today such as chest pain, shortness of breath at rest, nausea, vomiting, diarrhea, lightheadedness, dizziness,
cough, sore throat, or fever.
Medical History
Past Medical History
Past Medical History: Reports Other
Additional Past Medical History:
1. Paroxysmal atrial fibrillation, pharmacological therapy with Amiodarone and Metoprolol Tartrate and oral anticoagulation with Eliquis.
2. Hypertension.
3. Hyperlipidemia.
4. Coronary artery disease, status post PCI with bare metal stent to proximal LAD 02/2002.
5. PVCs.
6. Symptomatic bradycardia with syncope/sick sinus syndrome, status post dual chamber Medtronic pacemaker insertion 07/2024.
7. Hemorrhagic pericarditis and genitourinary bleeding, 2018, secondary to Xarelto; status post pericardiocentesis.
8. Nonocclusive thrombophlebitis of right basilic vein 03/2018.
9. Reported COPD with asthmatic component.
10. GERD.
11. Aragon's esophagus.
12. Hiatal hernia.
13. Colon polyps.
14. Diverticulosis.
15. Myasthenia gravis with ambulatory dysfunction, on Cellcept.
16. Multilevel degenerative disc disease.
17. Peripheral neuropathy with chronic bilateral foot drop.
18. Osteoarthritis, status post right total hip arthroplasty 2019.
19. Qocq-Apyqb-Tpppuke disease.
20. Basal and squamous cell carcinoma, status post multiple excisions.
21. Remote tobacco abuse.
Past Surgical History: Reports Other
Additional Past Surgical History:
1. Pericardiocentesis.
2. PCI with bare metal stent to proximal LAD.
3. Cardiac catheterization.
4. Dual chamber Medtronic pacemaker insertion.
5. Lumbar laminectomy x2.
6. Lumbar fusion x2.
7. Lumbar stimulator implant.
8. Lumbar stimulator removal.
9. Right total hip arthroplasty.
10. Right index finger release.
11. Right cataract extraction.
12. Colonoscopy x6.
13. Endoscopy x5.
Social History
Tobacco: Former Smoker (He is a former 1 pack per day cigarette smoker who quit tobacco altogether in 1977. )
Alcohol: Other (Seldom use reported. )
Personal:
Living: Other (He lives with his in a 2 story home. )
Family History
Family History: Not pertinent
Allergies / Home Medications
Allergy/Medication List:
Home medications:
1. Albuterol sulfate 2 puff inhaled every 4 hours as needed.
2. Amiodarone 100 mg p.o. daily.
3. Aspirin 81 mg p.o. daily.
4. Eliquis 5 mg p.o. twice a day.
5. Fluticasone 1 spray intranasal daily as needed.
6. Hydrochlorothiazide 25 mg p.o. daily.
7. Metoprolol Tartrate 12.5 mg p.o. twice a day.
8. CellCept 1,000 mg p.o. daily.
9. CellCept 500 mg p.o. at bedtime.
10. Omeprazole 20 mg p.o. daily.
11. Rosuvastatin 20 mg p.o. daily.
Allergies: Azathioprine. Oxycodone.
Review of Systems
-
A 12 point ROS was completed and negative except as noted: Yes
Physical Exam
Vital Signs
Blood pressure 134/77. Heart rate 67. Respirations 18. Pulse ox 95% on room air.
Height 5 feet, 10 inches. Weight 93.1 kg. BMI 29.5.
Physical Exam
General: Well Developed, Well Nourished and No Apparent Distress
HEENT: NormoCephalic, Moist mucous membranes, Atraumatic and PERRLA
Respiratory: Clear
Cardiac: Regular Rhythm and Other (Pacemaker site intact. )
GI: Soft, Non Tender and Non Distended
Musculoskeletal: No Edema and Other (The patient ambulates with a cane. Bilateral foot braces for chronic foot drop. )
Skin: Warm and Dry
Neuro: AO x 3 and Nonfocal/grossly intact
Laboratory Results
-
DIAGNOSTIC STUDIES as of 11/05/2024: White blood cell count 8.5. Hemoglobin 13.9. Platelet count 290,000. Sodium 139. Potassium 4.1. BUN 26. Creatinine 0.8. Glucose 104. Calcium 9.0. AST 29. ALT 18. Albumin 4.4. Type and screen O positive.
EKG 11/05/2024: Atrial paced rhythm with prolonged AV conduction. Left axis deviation. Nonspecific T wave abnormality.
Echocardiogram 07/15/2024: Normal LV size and function with no regional wall motion abnormalities. Ejection fraction is 60-65% by visual estimation. Normal diastolic function. Normal right ventricular size and function. No significant valvular
disease. Estimated pulmonary artery pressure of 36 mmHg, assuming a right atrial pressure of 3 mmHg. Compared to prior echocardiogram from August 15, 2023, tricuspid regurgitation is trace, previously mild to moderate, and estimated PASP is normal
at 36 mmHg, previously 40 to 45 mmHg.
Impression/Plan
-
IMPRESSION/PLAN:
1. Paroxysmal atrial fibrillation: The patient is in need of an Affera atrial fibrillation ablation with Dr. Eryn Cheung on 11/19/2024. The benefits and risks of the procedure have been explained to the patient. The patient understands these risks
and wishes to proceed. He is aware to continue Eliquis uninterrupted prior to his upcoming procedure.
[2024-11-06 09:24] VITALS: BMI 29.5
[2024-11-19] VITALS (10 sets, daily range): BP systolic 95–131; BP diastolic 62–84
[2024-11-19 11:14] LABS: ACT-LR - POC 324 Seconds (116-155)
[2024-11-19 11:37] LABS: ACT-LR - POC 318 Seconds (116-155)
[2024-11-19 11:58] LABS: ACT-LR - POC 318 Seconds (116-155)
--- NOTE | 2024-11-19 12:21 | ITS.CL.ABL ---
Assistant Accounting Manager - Ablation
Ablation
Procedure Report:
AFIB / A flutter ablation:
Mr. Garcia is a very pleasant 74 yr old gentleman with medical history significant for symptomatic paroxysmal atrial fibrillation failed Amiodarone is here in the EP lab for atrial fibrillation ablation
Date of Procedure:
11/19/2024
Indications:
Symptomatic paroxysmal atrial fibrillation
Pre-Operative Diagnosis:
Paroxysmal atrial fibrillation
Post-Operative Diagnosis:
Paroxysmal atrial fibrillation
Procedure Performed:
Atrial fibrillation ablation with wide area circumferential ablation (WACA) approach for pulmonary vein isolation
Performing Physician:
Eryn Cheung MD
Assistants:
EP staff
Anesthesia:
See anesthesia records
Detailed Description of the Procedure:
Written informed consent was obtained from the patient after a full explanation of the risks and benefits of the procedure including the risks of sedation and anesthesia.
The patient was brought to the electrophysiology laboratory in stable condition in fasting state. Continuous electrocardiographic and hemodynamic monitoring was initiated.
The initial rhythm was sinus rhythm with atrial pacing.
The procedure site was meticulously prepared with surgical scrub and allowed to dry with no pooling. Sterile draping was applied to cover the procedure site. The image intensifier was draped with sterile bag and positioned over the patient. After
infusion of local anesthetic, vascular access was obtained under ultrasound guidance and sheaths were placed over guide wire as detailed below.
The images of the ultrasound of the femoral vessels were stored in patient chart.
Sheath and Catheter Placement:
In the right femoral vein, a 10-Iraqi sheath was placed under ultrasound guidance for use during the ablation procedure. In the right femoral vein, another 9-Fr sheath was placed for use during intracardiac echo procedure.
The sheaths were upgraded as needed during the case. Intracardiac catheters were positioned using direct fluoroscopic guidance.� ICE catheter was placed in RA. The following catheters / sheaths were placed
Sheaths:
��������� Agilis sheath in right femoral vein upgraded from 10Fr in right femoral vein
��������� 9Fr in right femoral vein
Catheters:
��������� The Affera Sphere 9 catheter -bidirectional D/F� - at locations of HRA, LA and LV.
��������� ICE catheter -AccuNav -� at locations of RA, SVC, and RV.
Heparin was initiated after the access was obtained.
Intracardiac ECHO:
An 8-Iraqi AcuNav intracardiac ECHO (ICE) probe was advanced through the 9-Iraqi sheath in the left femoral vein into the right atrium under fluoroscopic and ICE ultrasound image guidance and a baseline ECHO study was performed. The left atrial
size was mildly dilated. There was trace tricuspid regurgitation. The aortic valve was grossly normal. There was normal left ventricular size and function. There is a trace pericardial effusion. The YORDAN has baseline normal velocities. The pulmonary
had good flow identified.
During the procedure, ICE was used for monitoring of complications, guidance of trans-septal puncture, monitor the catheter position and tracking ablation lesions. No change in the pericardial space noted throughout the procedure.
Trans-septal Puncture:
Heparin was initiated and infused to maintain appropriate ACT. A J-tipped guidewire was advanced through into the superior vena cava under fluoroscopic and ICE guidance. The Agilis sheath with BRK needle was advanced into the superior vena cava over
the guidewire. The apparatus was withdrawn until it was in contact with the fossa ovalis. The position was adjusted based on fluoroscopy and ultrasound images from ICE. Under fluoroscopic, hemodynamic and ICE ultrasound guidance, left atrium was
cannulated by advancing the needle. Once atrial septum was cannulated, the needle was pulled back and the guide wire was advanced through the needle into the left atrium. The guide wire was advanced into the left superior pulmonary vein. Both the
sheath and the dilator was advanced into the left atrium. The dilator with the needle was withdrawn. Blood was aspirated from the Agilis sheath and arterial blood confirmed. The sheath was flushed. Saline injection noted into the left atrium on ICE.
The waveform of the LA pressure was recorded. The mapping catheter was advanced in the Agilis sheath into the left pulmonary vein.
3D Electroanatomic Mapping:
Using the Sphere 9 Affera catheter advanced through Agilis sheath into the left atrium, an electroanatomic map (EAM) of the left atrium was created using Affera� mapping system with Prism-1 software. The map was used for localization of catheter
position and tacking of ablation lesions. The EAM of the left atrium showed a total of 4 PVs with a large common left pulmonary trunk and the three right sided pulmonary veins with all electrically connected to the body the LA. It showed no
significant scar on the posterior wall of the LA. The LA was dilated in size.
Following the EAM, preparation were made for ablation.
Ablation:
Ablation # 2: Pulmonary vein Isolation:
Pulsed field ablation was performed using an open irrigation, bidirectional, contact sensing, dual energy ablation catheter (Concarda sphere -9) by completing the circumferential lesions around the left and right pulmonary veins achieving pulmonary
vein isolation.
Confirmation of the PVI and bidirectional block:
Following achievement of entrance block at the pulmonary veins, pacing from the Sphere 9 affera catheter in each of the four veins at 20 milliamps for 4 milliseconds showed entrance and exit block.
The LA was mapped with The Concarda� mapping system with Prism-1 software in sinus rhythm confirming the line of block at the ablation lesions lines.
�
EP study:
Sinus Node Function: The sinus node functions are within acceptable normal range.
Atrioventricular Junior Function: �Normal AV conduction noted with normal AV junior conduction time.
Procedure End
ICE study was done again that showed no epicardial accumulation. No complications noted.
Following the completion of the EP study, catheters were removed. Protamine 30 mg was given at the end of the procedure and ACT was checked repeatedly. The sheaths were removed and hemostasis achieved with VASCADE / Figure of 8 suture and manual
compression after acceptable ACT is achieved.
Left atrial Pressure:
Pre-Procedure: Mean LA pressure was 10mmHg
Post-Procedure: Mean LA pressure was 11mmHg
Estimated Blood loss:
<10 cc
Specimens Removed:
None.
Implants / Devices:
None
Urine output:
None
Packs / Drains/ Tubes:
None
Instrument / Sponge Count Correct:
Yes
Complications of the Procedure:
None
Condition of Patient at Time of Transfer:
Hemodynamically stable with no neurological or vascular compromise.
Summary:
��������� Successful atrial fibrillation ablation with circumferential bidirectional line of block at pulmonary vein antra (Pulmonary vein isolation)
Figures from the Procedure:
Figure 1: The electroanatomic mapping (EAM) of the left atrium with bipolar voltage (purple indicates normal electrical activity with red as no myocardial muscle electric activity indicating a line of block or scar.
--- NOTE | 2024-11-19 15:04 | W.PN.UPDATE ---
Update Note
Progress Note Update
Pt seen post PFA. Right groin site without ht/bleeding, non tender. OOB ambulating, urinating without difficulty. Post EKG APaced 60s as before, no acute changes. Resume eliquis tonight at usual time, continue other meds as before. Followup at [facility]
as scheduled. Home later today if groin site/tele remain stable.
== END 2024-11-19 15:45 | disposition home or self-care (01) ==
LOC: CATH 07:55
PROVIDERS: ATTENDING PHYSICIAN Internal Medicine Cardiovascular Disease; FAMILY PHYSICIAN Family Medicine; OTHER PHYSICIAN Internal Medicine
DX: I48.0 Paroxysmal atrial fibrillation (principal); Z79.899 Other long term (current) drug therapy; I10 Essential (primary) hypertension; E78.5 Hyperlipidemia, unspecified; I25.10 Atherosclerotic heart disease of native coronary artery without angina pectoris; Z95.5 Presence of coronary angioplasty implant and graft; I49.5 Sick sinus syndrome; K21.9 Gastro-esophageal reflux disease without esophagitis; I49.3 Ventricular premature depolarization; Z86.79 Personal history of other diseases of the circulatory system; Z86.0100 Personal history of colon polyps, unspecified; G70.00 Myasthenia gravis without (acute) exacerbation; K22.70 Barrett's esophagus without dysplasia; K44.9 Diaphragmatic hernia without obstruction or gangrene; R55 Syncope and collapse; G62.9 Polyneuropathy, unspecified; M19.90 Unspecified osteoarthritis, unspecified site; Z85.828 Personal history of other malignant neoplasm of skin; Z87.891 Personal history of nicotine dependence; Z79.82 Long term (current) use of aspirin; Z79.624 Long term (current) use of inhibitors of nucleotide synthesis; Z79.01 Long term (current) use of anticoagulants; Z88.5 Allergy status to narcotic agent; I48.92 Unspecified atrial flutter; Z95.0 Presence of cardiac pacemaker; Z87.19 Personal history of other diseases of the digestive system; K57.90 Diverticulosis of intestine, part unspecified, without perforation or abscess without bleeding; M91.10 Juvenile osteochondrosis of head of femur [Legg-Calve-Perthes], unspecified leg
CPT/HCPCS: C1769; C1766; C1892; C1759; C1733; 85347; 86900; 86901; 93005; 93656; C1760

== ENCOUNTER → 2024-12-23 12:39 | Outpatient (REF) | payer MEDICARE, OTHER, SELFPAY | LOC: HWLAB 12:39 | PROVIDERS: ATTENDING PHYSICIAN Family Medicine | DX: Z01.84 Encounter for antibody response examination (principal) | CPT/HCPCS: 36415; 86765 ==

== ENCOUNTER → 2025-04-15 13:51 | Outpatient (REF) | payer MEDICARE, OTHER, SELFPAY | LOC: RCS 13:51 | PROVIDERS: ATTENDING PHYSICIAN Internal Medicine; FAMILY PHYSICIAN Family Medicine | DX: I25.118 Atherosclerotic heart disease of native coronary artery with other forms of angina pectoris (principal); I48.0 Paroxysmal atrial fibrillation; Z95.0 Presence of cardiac pacemaker | CPT/HCPCS: 93306 ==